=== PATIENT | female | born 1990 | race Caucasian/White ===

== ENCOUNTER 2019-09-03 04:51 | Inpatient (IN) ==
[2019-09-03] MEDS ORDERED: OXYTOCIN 30 UNITS/500 ML BAG IV PRN ×3 (05:40→21:43)
[2019-09-03] MEDS: LACTATED RINGER'S 1,000 ML IV PRN ×3 (05:53→20:15)
[2019-09-03] MEDS ORDERED: INFLUENZA ADMINISTRATION CHARGE ONE (06:00)
[2019-09-03] MEDS ORDERED: INFLUENZA VIRUS QUAD VACCINE 0.5 ML SYR IM ONE (06:00)
[2019-09-03 06:01] LABS: Hematocrit (blood only) 35.4 % (37-47); Hemoglobin 12.2 g/dL (12.0-16.0); Mean Corpuscular Hemoglobin 28.9 pg (25-34); Mean Corpuscular Volume 83.9 fL (80-100); Mean Platelet Volume 9.2 fL (7.4-10.4); Platelet Count 340 K/uL (130-400); RDW Coefficient of Variation 14.1 % (11.5-14.5); Red Blood Count 4.22 M/uL (4.2-5.4); White Blood Count 13.26 K/uL (4.8-10.8)
[2019-09-03 06:06] LABS: Mean Corpuscular Hgb Conc 34.5 g/dL (32-36)
--- NOTE | 2019-09-03 08:54 | History & Physical Report ---
Date of Service September 03, 2019 Assessment & Plan (1) Full-term PROM with onset of labor within 24 hours of rupture: (2) Obesity complicating , childbirth, or puerperium, antepartum: will plan pitocin augmentation. iupc placed to monitor ctx. pt has been admitted and labs reviewed. fhts reassuring overall. History of Present Illness Chief Complaint: srom, light mec @ 300am 09/03/19 Primary Care Provider: NO PCP 29yo at 39 wks ega presents to L&D with above cc. Not really feeling ctx are regular. continues to leak thin mec stained fluid. almost 6hr from prom and would be accepting of pitocin. pnc c/b morbid obesity, efw aga @ 32wks, genital herpes--has been on valtrex, no outbreaks, echo normal pnl rh pos, rubella immune, gbs negative obh: x 3, largest 8+#, sab x 3, one required D&E gynh: h/o genital herpes, no outbreaks for years, normal pap smears pmh: h/o anxiety/depression, migraines psh: pradeep, wisdom tooth extraction Allergies Allergy/AdvReac Type Severity Reaction Status Date / Time No Known Drug Allergies Allergy none Verified 08/30/19 08:27 Home Medications Home Medications Medication Instructions Recorded Confirmed Type 1 tab PO DAILY 06/28/19 09/03/19 History vitamin,calcium,yusidrwl-pvcn-iyckg acid tablet sertraline 50 mg tablet 75 mg PO DAILY #30 tab 07/31/19 09/03/19 Rx valacyclovir 1 gram tablet 500 mg PO DAILY #30 tab 08/14/19 09/03/19 Rx Patient History Social History Preferred Language: Persian Communication Ability: Effective Beliefs That Will Affect Care: None marital status: Current Living Situation: Spouse and Family Other Information That Helps Us Care for You: No Feels Safe at Home: Yes Smoking Status: Never smoker Hx Alcohol Use: No Hx Substance Use: No Review of Systems as per Subjective / HPI Physical Exam Constitutional: WD/WN, vitals as above Respiratory: normal respiratory effort, lungs clear to auscultation Cardiovascular: Rate/Rhythm: regular rate and regular rhythm Gastrointestinal (Abdomen): soft gravid nt, efw 8#, morbid obesity Musculoskeletal: tr edema nontender calves Neurologic: grossly normal Psychiatric: A+Ox3, euthymic affect Genitourinary: Manual OB Exam: + cervical dilation (1-2), + cervical effacement (75%), + station -2 and + amniotic fluid meconium OB Exam Monitor Tracing: + external FHT monitor used (130 mod variability ), + category II, + normal FHT variability and + variable decelerations iupc placed Results & Data Vital Signs (Past 12 Hours) Vital Signs Temp Pulse Resp BP 09/03/19 07:11 98.4 F 75 20 109/54 L 09/03/19 05:08 98.4 F 96 H 20 121/71 09/03/19 05:06 96 H 121/71 Code Status & VTE Plan VTE Prophylaxis Plan VTE Prophylaxis will be ordered: No
--- NOTE | 2019-09-03 12:28 | Labor Progress Brief Note ---
Date of Service September 03, 2019 Subjective Reason For Note: Routine Evaluation Current Pain Level(1-10): 5 having more painful ctx, pit at 6 Assessment & Plan (1) Full-term PROM with onset of labor within 24 hours of rupture: pit at 6, will cont to increase to keep mvus adeq. fhts overall reassuring. small change. Physical Exam Constitutional: WD/WN, vitals as above (sbp in 140s) Genitourinary: Manual OB Exam: + cervical dilation (1-2), + cervical effacement 90% and + station -2 OB Exam Monitor Tracing: + external FHT monitor used (125 mod variability), + intra-uterine pressure catheter used (q2-3 ), + category I and + normal FHT variability Results & Data Vital Signs (Past 12 Hours) Vital Signs Temp Pulse Resp BP 09/03/19 12:14 97.7 F 86 20 140/73 09/03/19 09:54 98.6 F 74 20 109/55 L 09/03/19 09:05 86 120/62 09/03/19 07:11 98.4 F 75 20 109/54 L 09/03/19 05:08 98.4 F 96 H 20 121/71 09/03/19 05:06 96 H 121/71
--- NOTE | 2019-09-03 16:15 | Labor Progress Brief Note ---
Date of Service September 03, 2019 Subjective Reason For Note: Routine Evaluation doing well unmedicated. pit at 9. feels some pressure with ctx. Assessment & Plan (1) Full-term PROM with onset of labor within 24 hours of rupture: (2) Obesity complicating , childbirth, or puerperium, antepartum: small cx change. keep ctx adeq with pit. fhts categ 1 Physical Exam Constitutional: WD/WN, vitals as above Genitourinary: Manual OB Exam: + cervical dilation 4 cm, + cervical effacement 80%, + station -2 and + amniotic fluid (thin mec) OB Exam Monitor Tracing: + scalp electrode used (130 mod variability), + intra-uterine pressure catheter used (q2-4), + category I and + normal FHT variability Results & Data Vital Signs (Past 12 Hours) Vital Signs Temp Pulse Resp BP 09/03/19 15:30 20 09/03/19 15:03 105 H 128/82 09/03/19 15:00 98.1 F 20 09/03/19 14:10 98.1 F 99 H 20 129/79 09/03/19 12:14 97.7 F 86 20 140/73 09/03/19 09:54 98.6 F 74 20 109/55 L 09/03/19 09:05 86 120/62 09/03/19 07:11 98.4 F 75 20 109/54 L 09/03/19 05:08 98.4 F 96 H 20 121/71 09/03/19 05:06 96 H 121/71
[2019-09-03] MEDS ORDERED: ONDANSETRON INJ 2 MG/ML 2 ML VIAL IV STA (18:36)
[2019-09-03] MEDS ORDERED: ONDANSETRON INJ 2 MG/ML 2 ML VIAL ONE (18:37)
[2019-09-03] MEDS ORDERED: BUPIVACAINE 0.25% 30 ML VIAL ONE (20:31)
[2019-09-03] MEDS ORDERED: fentaNYL 2MCG/ML ROPIV 1.25MG/ML 100 ML BAG EPI ONE (20:32)
[2019-09-03] MEDS ORDERED: ePHEDrine sulfate 50 MG/ML AMP ONE (20:32)
[2019-09-03] MEDS ORDERED: fentaNYL citrate 100 MCG/2 ML VIAL ONE (20:32)
--- NOTE | 2019-09-03 20:33 | Labor Progress Brief Note ---
Date of Service September 03, 2019 Subjective Reason For Note: Requested By RN and Inadequate Pain Control wants epidural Assessment & Plan (1) Full-term PROM with onset of labor within 24 hours of rupture: (2) Obesity complicating , childbirth, or puerperium, antepartum: good cx change. fhts categ 2, pt now requests epidural. will notify anesthesia Physical Exam Constitutional: WD/WN, vitals as above Genitourinary: Manual OB Exam: + cervical dilation 7 cm, + cervical effacement 80% and + station -1 OB Exam Monitor Tracing: + scalp electrode used (160 mod variability, +spont accels, + variable decels), + intra-uterine pressure catheter used (mvus adeq), + category II, + normal FHT variability and + variable decelerations Results & Data Vital Signs (Past 12 Hours) Vital Signs Temp Pulse Resp BP 09/03/19 19:45 72 113/62 09/03/19 19:30 24 09/03/19 19:16 69 121/70 09/03/19 19:01 98.4 F 09/03/19 19:00 24 09/03/19 18:30 22 09/03/19 18:00 20 09/03/19 17:00 72 20 123/76 09/03/19 16:30 22 09/03/19 16:00 20 09/03/19 15:30 20 09/03/19 15:03 105 H 128/82 09/03/19 15:00 98.1 F 20 09/03/19 14:10 98.1 F 99 H 20 129/79 09/03/19 12:14 97.7 F 86 20 140/73 09/03/19 09:54 98.6 F 74 20 109/55 L 09/03/19 09:05 86 120/62
[2019-09-03] MEDS ORDERED: BENZOCAINE 20% AER SPR 82.5 GM CAN EXT PRN (21:43)
[2019-09-03] MEDS ORDERED: ACETAMINOPHEN W/CODEINE #3 1 TAB PO PRN (21:43)
[2019-09-03] MEDS ORDERED: SUPERCREAM 0.870% 15 GM JAR EXT PRN (21:43)
[2019-09-03] MEDS ORDERED: HYDROCORTISONE ACETATE 25 MG SUPP PR PRN (21:43)
[2019-09-03] MEDS ORDERED: IBUPROFEN 600 MG TAB PO PRN (21:43)
[2019-09-03] MEDS ORDERED: ACETAMINOPHEN 325 MG TAB PO PRN (21:43)
[2019-09-03] MEDS ORDERED: DIPHTHERIA/TETANUS/PERTUSSIS 0.5 ML SYR/VIAL IM ONE (21:43)
[2019-09-03] MEDS ORDERED: OXYTOCIN 20 UNITS in LACTATED RINGER'S 1,000 ML IV SCH (21:45)
--- NOTE | 2019-09-03 21:46 | Delivery Summary ---
Vaginal Delivery Summary Date of Service September 03, 2019 The patient dilated to complete and pushed to deliver a viable male infant s 8 and 10 via over intact perineum. Shoulders and body delivered with ease through loose nuchal cord. was vigorous and crying at . Cord clamped at 30 seconds of life and to maternal abdomen where the cord was then doubly clamped and cut. Placenta delivered spontaneously and intact, three-vessel cord. Hemostasis achieved with dilute pitocin and uterine massage. Cervix and sulci intact. Small vaginal laceration reapproximated after 1% local lidocaine anesthesia with single figure of eight suture of 3-0 vicryl. EBL 300 cc. Mother and baby stable recovery.
--- NOTE | 2019-09-04 05:26 | Obstetrical Progress Note ---
Date of Service September 04, 2019 Assessment & Plan (1) : 29 yo s/p VD @ 39w2d -PPD# 1 - GBS negative, Blood Type A+ - Feels well today. Eating well, voiding well, ambulating well. - Pain well controlled. - Routine care - After discharge will have [address] Lisa. Supervising Physician Co-Signing Physician Notes Resident Physician Supervision Note: I was present with Dr. Leggett during the history and exam. I discussed the case with the resident and agree with the findings and plan as documented in the note. Any exceptions or clarifications are listed here: ff at u, nt. doing well, routine care. Documented By: Seema Lisa MD, FACOG Subjective Doing well this morning. is going well. Pain described as, "minimal." Bleeding is less than a heavy period and improving. No questions or concerns today. Baby having a circumcision today. Review of Systems Review of Systems: Denies fever, chills, sweats Denies shortness of breath, difficulty breathing, chest pain, palpitations, ches t pressure. Denies breast pain. Denies dysuria. Denies headache. Physical Exam Physical Exam: General: Alert, oriented. No acute distress. Cardiac: Regular rate and rhythm, no murmurs/rubs/gallops. Respiratory: Clear to auscultation anterior and posteriorly, no wheezes/rales/rhonchi. No increased work of breathing. Symmetrical chest rise. No respiratory distress. Abdomen: Soft, nontender, nondistended. Bowel sounds present. Uterus: Uterine fundus firm, palpable at the umbilicus. Lower Extremities: No lower extremity edema or swelling. No deep calf pain. Yancy's negative bilaterally. Results & Data Vital Signs (Past 12 Hours) Vital Signs Temp Pulse Pulse Resp BP BP Pulse Ox 09/04/19 04:30 37.0 C 70 17 109/53 L 09/04/19 00:25 36.7 C 84 20 121/61 97 09/03/19 23:41 81 104/56 L 09/03/19 23:26 78 106/57 L 09/03/19 23:11 88 101/56 L 09/03/19 23:10 36.8 C 18 09/03/19 22:56 75 113/59 L 09/03/19 22:41 82 111/59 L 09/03/19 22:40 18 09/03/19 22:26 86 121/69 09/03/19 22:25 18 09/03/19 22:11 73 126/59 L 09/03/19 22:10 18 09/03/19 21:56 85 119/67 09/03/19 21:55 18 09/03/19 21:40 36.9 C 80 20 122/70 09/03/19 21:27 87 98 09/03/19 21:22 77 96 09/03/19 21:17 81 100 09/03/19 21:12 84 100 09/03/19 21:11 82 124/75 09/03/19 21:00 37.0 C 24 09/03/19 20:30 22 09/03/19 20:00 20 09/03/19 19:45 72 113/62 09/03/19 19:30 24 09/03/19 19:16 69 121/70 09/03/19 19:01 36.9 C 09/03/19 19:00 24 09/03/19 18:30 22 09/03/19 18:00 20 PG Care Time/CCT Total # of Minutes Spent Total Time Spent with Patient: Total time spent is greater than 50% in coordination of care (as documented) at patient's floor/unit and/or counseling patient: Resident Activity Tracking Resident Involvement: Resident Care Provided Care Provided: Adult Hospital Medicine
[2019-09-04] MEDS: DOCUSATE SODIUM 100 MG CAP PO SCH ×2 (08:38→21:48)
[2019-09-04] MEDS: SERTRALINE HCL 50 MG TABLET PO SCH (08:39)
--- NOTE | 2019-09-05 05:54 | Obstetrical Progress Note ---
Date of Service September 05, 2019 Assessment & Plan (1) : 29 yo s/p VD @ 39w2d - PPD# 2 - GBS negative, Blood Type A+ - Feels well today. Eating well, voiding well, ambulating well. - Pain well controlled. - Routine care - After discharge will have [address] Lisa. Supervising Physician Co-Signing Physician Notes Resident Physician Supervision Note: I was present with Dr. Way during the history and exam. I discussed the case with the resident and agree with the findings and plan as documented in the note. Any exceptions or clarifications are listed here: PPD#2 doing well. DC home today. Documented By: Ml Lucia, DO Subjective Doing well this morning. is going well. Pain described as, "minimal." Bleeding is less than a heavy period and improving. No questions or concerns today. Review of Systems Review of Systems: Denies fever, chills, sweats Denies shortness of breath, difficulty breathing, chest pain, palpitations, chest pressure. Denies breast pain. Denies dysuria. Denies headache. Physical Exam Physical Exam: General: Alert, oriented. No acute distress. Cardiac: Regular rate and rhythm, no murmurs/rubs/gallops. Respiratory: Clear to auscultation anterior and posteriorly, no wheezes/rales/rhonchi. No increased work of breathing. Symmetrical chest rise. No respiratory distress. Abdomen: Soft, nontender, nondistended. Bowel sounds present. Uterus: Uterine fundus firm, palpable at the umbilicus. Lower Extremities: No lower extremity edema or swelling. No deep calf pain. Yancy's negative bilaterally. Results & Data Vital Signs (Past 12 Hours) Vital Signs Temp Pulse Pulse Resp BP Pulse Ox 09/05/19 00:30 36.8 C 80 18 121/72 98 09/04/19 20:10 36.6 C 90 18 128/81 98 PG Care Time/CCT Total # of Minutes Spent Total Time Spent with Patient: Total time spent is greater than 50% in coordination of care (as documented) at patient's floor/unit and/or counseling patient: Resident Activity Tracking Resident Involvement: Resident Care Provided Care Provided: OB Delivery
[2019-09-05] MEDS: SERTRALINE HCL 50 MG TABLET PO SCH (08:29)
[2019-09-05] MEDS: DOCUSATE SODIUM 100 MG CAP PO SCH (08:29)
== END 2019-09-05 13:15 | disposition home or self-care (01) | DRG 806 ==
LOC: OPB 04:51 → 4S1 04:54 → 4S2 09-04 00:10

== ENCOUNTER 2024-08-02 09:47 | Inpatient (IN) ==
--- NOTE | 2024-08-02 10:09 | History & Physical Report ---
Date of Service August 02, 2024 Assessment & Plan (1) Encounter for supervision of normal in multigravida: (2) Obesity affecting : (3) Genital herpes simplex: Kraig Joseph is a 34 y/o female currently at 39W5D GA with an TANNER 08/04/24 as determined by LMP who is here for induction/. Her was complicated by Obesity and HSV positive on Valtrex daily starting 36 weeks. Pt declining epidural at this time. Start Pitocin, low dose Monitor vitals, pain and FHT Continue Valtrex 500mg, BID Admission and Anticipated Discharge Date Admission Date: August 02, 2024 History of Present Illness Primary Care Provider: Esperanza Bah ChecoDO Joseph is a 34 y/o female currently at 39W5D GA with an TANNER 08/04/24 as determined by LMP who is here for induction/. Her was complicated by obesity and HSV positive on Valtrex daily starting 36 weeks. irregular contractions; regular movement; no fluid loss; no bloody show External FHT and external uterine monitors used; Category 1 tracing; moderate FHT variability. Had regular appointments with OB. Labs: (12/28/23) Blood type: A positive Antibody screen: negative H.4 (today) Hct: 36.6 (today) WBC:11.56 (today) Plt: 349 (today) Rubella: Immune VDRL/RPR: Nonreactive Gonorrhea: Not detected Chlamydia: Not detected HIV: Negative HbSAg: Non reactive GBS: negative Other screens: cff-DNA: (see scanned documents) CF: declined SMA: declined Allergies Allergy/AdvReac Type Severity Reaction Status Date / Time No Known Drug Allergies Allergy none Verified 08/01/24 13:25 Home Medications Medication Instructions Recorded Confirmed Type docosahexaenoic acid [ DHA] PO 12/17/23 08/01/24 History acetaminophen 325 mg capsule 325 mg PO QID PRN OSPINA 12/21/23 08/02/24 History (Tylenol) ondansetron HCl 4 mg tablet 4 mg PO TID PRN nausea and 12/28/23 08/02/24 Rx vomiting #30 tabs fluoxetine 10 mg capsule (Prozac) 40 mg PO DAILY 06/15/24 08/02/24 History valacyclovir 500 mg tablet 500 mg PO BID #60 tabs 06/29/24 08/02/24 Rx (Valtrex) yblslxynuq-dkpavccbqyula-wgnhcmkq 1 tab PO Q6H PRN pain #20 tabs 07/18/24 08/02/24 Rx 50 mg-325 mg-40 mg tablet Patient History Medical History History of varicella vaccination History of depression History of migraine Surgical History S/P cholecystectomy S/P dilatation and curettage S/P wisdom tooth extraction Family History Grandfather (Paternal) Diabetes Myocardial infarction Mother Diabetes Hypertension Anxiety Depression Father Hypertension Depression Seizure Grandfather (Maternal) Myocardial infarction Sister Depression Son Autism Family/Other Autism Half-brother Denies family history of Ovarian cancer Prostate cancer Breast cancer Colorectal cancer Social History Smoking Status: Never smoker Second Hand Exposure: No; Do You Dip or Chew Tobacco: No; Hx Alcohol Use: No Hx Substance Use: No Preferred Language: Arabic Communication Ability: Effective Visual Impairment: No Limitations Administrative Appeals Tribunal Member Required: No Beliefs That Will Affect Care: None marital status: marital status details: Friend: Laine Current Living Situation: Family Current Living Situation Comment: S/O adn 4 children (part custody) current occupational status: employed 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 Denies breast pain. Denies dysuria. Denies headache or changes in vision. Physical Exam Physical Exam: General: Alert, oriented. No acute distress. Cardiac: Regular rate and rhythm, no murmurs/rubs/gallops. Respiratory: Clear to auscultation bilaterally a/p, no wheezes/rales/rhonchi. No increased work of breathing. Symmetrical chest rise. No respiratory distress. Abdomen: Gravid; Pelvic: Dilation 4 cm; Effacement 90%; Station -[address] Lucia Lower Extremities: No lower extremity edema or swelling. No deep calf pain. Yancy's negative bilaterally Code Status & VTE Plan VTE Prophylaxis Plan VTE Prophylaxis will be ordered: No Supervising Physician Co-Signing Physician Notes Resident Physician Supervision Note: I interviewed and examined the patient. Discussed with Dr. Parr and agree with findings and plan as documented in the note. Any exceptions or clarifications are listed here: 34yo @ 39 02/26, IOL. On valtrex, no current outbreak by symptoms or exam. IOL with pitocin. Anticipate . Documented By: Ml Lucia, DO Resident Activity Tracking Resident Involvement: Resident Care Provided Care Provided: Adult Hospital Medicine
[2024-08-02] MEDS ORDERED: OXYTOCIN 30 UNITS/NSS 30 UNITS/500 ML BAG IV PRN ×2 (10:37→21:48)
[2024-08-02] MEDS ORDERED: LIDOCAINE 1% LOCAL 20 ML VIAL INFIL PRN (10:37)
[2024-08-02] MEDS ORDERED: CALCIUM CARBONATE 500 MG CHEWABLE TAB PO PRN (10:37)
[2024-08-02 11:22] LABS: Hematocrit (blood only) 36.6 % (37.0-47.0); Hemoglobin 12.4 g/dl (12.0-16.0); Mean Corpuscular Hemoglobin 28.7 pg (25.0-34.0); Mean Corpuscular Hgb Conc 33.9 g/dL (32.0-36.0); Mean Corpuscular Volume 84.7 fL (80.0-100.0); Mean Platelet Volume 9.8 fL (9.4-12.4); Platelet Count 349 K/uL (130-400); RDW Standard Deviation 39.8 fL (36.4-46.3); Red Blood Count 4.32 M/uL (4.20-5.40); White Blood Count 11.56 K/ul (4.8-10.8)
[2024-08-02] MEDS: OXYTOCIN 30 UNITS/NSS 30 UNITS/500 ML BAG IV PRN (11:40)
[2024-08-02] MEDS: LACTATED RINGER'S 1,000 ML IV PRN (11:40)
--- NOTE | 2024-08-02 16:11 | Labor Progress Brief Note ---
Date of Service August 02, 2024 Subjective FHT Cat 1 [place] Q 2-4 SVE 4/90/-2 AROM mec-stained fluid. Assessment & Plan Admission and Anticipated Discharge Date Admission Date: August 02, 2024 Results & Data Vital Signs (Past 12 Hours) Vital Signs Temp Pulse Resp BP 08/02/24 15:05 72 102/64 08/02/24 15:00 16 08/02/24 15:00 36.8 C 16 08/02/24 13:44 82 124/68 08/02/24 11:46 88 121/81 08/02/24 10:30 18 08/02/24 10:30 36.6 C 18 08/02/24 10:13 111 H 120/82 08/02/24 10:00 36.6 C 18 Coding Level of Care Code None
--- NOTE | 2024-08-02 20:35 | Labor Progress Brief Note ---
Date of Service August 02, 2024 Subjective FHT difficult to trace, therefore recommended internal monitoring. Placed IUPC, FSE. SVE 6/100/0 FHT Cat 1, [place] Q2 Continue IOL Assessment & Plan Admission and Anticipated Discharge Date Admission Date: August 02, 2024 Results & Data Vital Signs (Past 12 Hours) Vital Signs Temp Pulse Resp BP 08/02/24 19:38 75 136/74 08/02/24 19:05 36.7 C 22 08/02/24 18:34 78 133/89 08/02/24 18:03 84 140/93 08/02/24 15:05 72 102/64 08/02/24 15:00 16 08/02/24 15:00 36.8 C 16 08/02/24 13:44 82 124/68 08/02/24 11:46 88 121/81 08/02/24 10:30 18 08/02/24 10:30 36.6 C 18 08/02/24 10:13 111 H 120/82 08/02/24 10:00 36.6 C 18 Coding Level of Care Code None
--- NOTE | 2024-08-02 21:42 | Delivery Summary ---
Vaginal Delivery Summary Date of Service August 02, 2024 Vaginal Delivery Summary and 1st Degree LAC Vaginal Delivery Summary: Pre-delivery diagnoses: 34yo @ 39 4/7, IOL Post-delivery diagnoses: same Procedure: spontaneous vaginal delivery Surgeon: Ml Lucia DO Complications: none Findings: Viable male . Apgars: 7/8 . Weight pending, please see nursery records Estimated blood loss: 257cc Description of delivery: The patient progressed to complete without anesthesia. She then began to push. She spontaneously vaginally delivered a viable from the cephalic presentation. The head delivered in TIMOTHY position. Nuchal x 2, easily reduced. The anterior shoulder delivered, followed by the posterior shoulder, followed by the body. The baby was placed on mother's abdomen and a spontaneous cry was heard. Delayed cord clamping was employed, and the cord was doubly clamped and cut. A segment was retained for cord gases. Cord blood was obtained. The placenta was delivered spontaneously intact with a 3-vessel cord. The uterus and vagina were swept of clots and debris. IV pitocin was given. The uterus became firm. The cervix, vagina, and perineum were inspected and first degree perineal laceration and supraclitoral - both hemostatic, superficial enough to not require repair. Excellent hemostasis was observed. The mother and baby are recovering in stable and good condition in the room. Sponge and instrument counts were correct x 2. Ml Lucia DO [facility] Vaginal Delivery Charge Vaginal Delivery Codes: 66546 global code for the antepartum, delivery, and post- Delivery Type Details: and 1st Degree LAC
[2024-08-02] MEDS ORDERED: ACETAMINOPHEN 325 MG TAB PO PRN (21:48)
[2024-08-02] MEDS ORDERED: oxyCODONE/ACETAMINOPHEN 5mg/325mg TAB PO PRN (21:48)
[2024-08-02] MEDS ORDERED: HYDROCORTISONE ACETATE 25 MG SUPP PR PRN (21:48)
[2024-08-02] MEDS: DIPHTHER/TETAN/PERTUS Vaccine (Tdap, Adol/Adult) 0.5mL IM ONE (22:14)
[2024-08-02] MEDS: IBUPROFEN 600 MG TAB PO PRN (22:18)
[2024-08-02] MEDS: BENZOCAINE 20% SPRY 85 APPLN/85 GM CAN EXT PRN (22:19)
[2024-08-03] MEDS ORDERED: SODIUM CHLORIDE 0.9% 250 ML IV PRN (00:29)
--- NOTE | 2024-08-03 05:39 | Obstetrical Progress Note ---
Date of Service August 03, 2024 Assessment & Plan (1) Encounter for care and examination after delivery: (2) Obesity affecting : (3) Genital herpes simplex: Plan Pt is 34 yo post- day 1 s/p at 39w5d. complicated by obesity and HSV 2. Pt taking Valtrex BID starting at 36 weeks. Patient is doing well today, Hbg and vitals are stable Encourage ambulation and breast feeding Ibuprofen 600mg PRN q4h and Tylenol 600mg PRN q6H for pain control Monitor vitals Discontinued Valtrex Upon discharge, pt to follow up with Dr. Lucia in 6 weeks Admission and Anticipated Discharge Date Admission Date: August 02, 2024 Supervising Physician Co-Signing Physician Notes Resident Physician Supervision Note: I interviewed and examined the patient. Discussed with Dr. Parr and agree with findings and plan as documented in the note. Any exceptions or clarifications are listed here: PPD#1 doing well. Desires DC home tomorrow. Continue routine care. Documented By: Ml Lucia, DO Subjective Pt is 34 yo post- day 1 s/p at 39w5d. complicated by obesity and HSV 2. Pt taking Valtrex BID starting at 36 weeks. Ambulation:In and out of room Voiding:voiding normally Passing gas: yes BM: no Diet tolerance:regular diet Lochia:bloody, no clots Feeding type: breast Current pain level: 3 /10 improved with ibuprofen Resting comfortably this morning in NAD. Denies OSPINA, CP, SOB, N/V/D, LE pain/swelling. Review of Systems Review of Systems: As per HPI Physical Exam Constitutional: WD/WN, vitals as above Respiratory: normal respiratory effort, lungs clear to auscultation Cardiovascular: RRR, no murmur, no edema Gastrointestinal (Abdomen): normal bowel sounds, soft, nontender, no hepatosplenomegaly Uterine fundus firm and at level of umbilicus Neurologic: PERRL, EOMI, accommodation nl, no face palsy, no dysarthria Moving all 4 extremities on command Psychiatric: A+Ox3, euthymic affect Results & Data Vital Signs (Past 12 Hours) Vital Signs Temp Pulse Pulse Resp BP BP Pulse Ox 08/03/24 03:50 36.9 C 86 18 115/73 97 09/12/24 00:05 36.5 C 93 H 20 118/56 L 98 08/02/24 23:34 93 H 118/56 L 08/02/24 23:30 36.5 C 22 08/02/24 23:19 93 H 122/58 L 08/02/24 23:03 95 H 131/63 08/02/24 23:00 18 08/02/24 22:33 85 129/72 08/02/24 22:15 18 08/02/24 22:03 81 117/63 08/02/24 22:00 18 08/02/24 21:45 18 08/02/24 21:33 90 132/63 08/02/24 21:30 20 08/02/24 21:03 73 120/75 08/02/24 20:34 70 126/83 08/02/24 19:38 75 136/74 08/02/24 19:05 36.7 C 22 08/02/24 18:34 78 133/89 08/02/24 18:03 84 140/93 O2 Del Method 08/03/24 03:50 Room Air 08/03/24 00:05 Room Air 08/02/24 23:34 08/02/24 23:30 08/02/24 23:19 08/02/24 23:03 08/02/24 23:00 08/02/24 22:33 08/02/24 22:15 08/02/24 22:03 08/02/24 22:00 08/02/24 21:45 08/02/24 21:33 08/02/24 21:30 08/02/24 21:03 08/02/24 20:34 08/02/24 19:38 08/02/24 19:05 08/02/24 18:34 08/02/24 18:03 Resident Activity Tracking Resident Involvement: Resident Care Provided Care Provided: Adult Hospital Medicine
[2024-08-03 07:01] LABS: Hematocrit (blood only) 30.1 % (37.0-47.0); Hemoglobin 10.4 g/dl (12.0-16.0)
[2024-08-03] MEDS: PRENATAL VITAMIN 1 TAB PO SCH (08:13)
[2024-08-03] MEDS: DOCUSATE SODIUM 100 MG CAP PO SCH (08:13)
[2024-08-03] MEDS: FLUoxetine HCL 20 MG CAP PO SCH (09:06)
[2024-08-03] MEDS: bisacodyL 5 MG TABEC PO SCH (20:27)
--- NOTE | 2024-08-04 05:48 | Obstetrical Progress Note ---
Date of Service August 04, 2024 Assessment & Plan (1) Encounter for care and examination after delivery: (2) Obesity affecting : (3) Genital herpes simplex: Plan Pt is 34 yo post- day 2 s/p at 39w5d. complicated by obesity and HSV 2. Pt taking Valtrex BID starting at 36 weeks. Patient is doing well today, Hbg and vitals are stable Encourage ambulation and breast feeding Ibuprofen 600mg PRN q4h and Tylenol 600mg PRN q6H for pain control Monitor vitals Discharge to home Follow up with Dr. Lucia in 6 weeks Admission and Anticipated Discharge Date Admission Date: August 02, 2024 Supervising Physician Co-Signing Physician Notes Resident Physician Supervision Note: I interviewed and examined the patient. Discussed with Dr. Parr and agree with findings and plan as documented in the note. Any exceptions or clarifications are listed here: [None] Documented By: Margo Santana MD, FACOG Subjective Pt is 34 yo post- day 2 s/p at 39w5d. complicated by obesity and HSV 2. Pt taking Valtrex BID starting at 36 weeks. Ambulation:In and out of room Voiding:voiding normally Passing gas: yes BM: yes Diet tolerance:regular diet Lochia:bloody, no clots Feeding type: breast Current pain level: 0-2 /10 improved with ibuprofen Resting comfortably this morning in NAD. Denies OSPINA, CP, SOB, N/V/D, LE pain/swelling. Review of Systems Review of Systems: As per HPI Physical Exam Constitutional: WD/WN, vitals as above Respiratory: normal respiratory effort, lungs clear to auscultation Cardiovascular: RRR, no murmur, no edema Gastrointestinal (Abdomen): normal bowel sounds, soft, nontender, no hepatosplenomegaly Uterine fundus is firm at 1 cm below umbilicus Neurologic: PERRL, EOMI, accommodation nl, no face palsy, no dysarthria Psychiatric: A+Ox3, euthymic affect Results & Data Vital Signs (Past 12 Hours) Vital Signs Temp Pulse Resp BP Pulse Ox O2 Del Method 08/03/24 23:02 37 C 90 18 130/76 97 Room Air 08/03/24 18:57 36.7 C 93 H 18 125/84 95 Room Air Resident Activity Tracking Resident Involvement: Resident Care Provided Care Provided: Adult Hospital Medicine
[2024-08-04 08:21] VITALS: BP 119/81; PULSE 88; RESP 16; TEMP 97.9; O2SAT 98
[2024-08-04] MEDS ORDERED: bisacodyL 10 MG SUPP PR PRN (21:48)
== END 2024-08-04 11:25 | disposition home or self-care (01) | DRG 806 ==
LOC: 4S1 09:47 → 4E2 08-03 00:21